=== PATIENT | female | born 1935 | race African-American/Black ===

== ENCOUNTER 2017-03-25 19:33 | Emergency (ER) | payer OTHER ==
[~2017-03-25 19:33] MED LIST: CIPROFLOXACIN250 M2 PO; ECO81 PO; ELA25 PO; LAC PO; LAC30L PO; METFORMIN ER500 M1 PO; SEN PO; SYN75 PO; ZOCOR40 MG PO; ZOF4 PO
[2017-03-25 20:33] LABS: BASOPHIL % 0.4 % (0-2); PLATELET COUNT 257 x10^3mcL (130-400); RED CELL DISTRIBUTION WIDTH 14.5 % (11.5-14.5)
[2017-03-25 20:47] LABS: ALBUMIN 3.5 g/dL (3.4-5.0); ALKALINE PHOSPHATASE 92 U/L (46-116); ALT/SGPT 17 U/L (14-59); AST/SGOT 17 U/L (15-37); BILIRUBIN TOTAL 0.2 mg/dL (0.20-1.00); CARBON DIOXIDE 29.8 mmol/L (21-32); CHLORIDE SERUM 104 mmol/L (98-107); CREATININE SERUM 1.4 mg/dL (0.6-1.0); GLUCOSE SERUM 108 mg/dL (74-106); LIPASE 92 IU/L (73-393); SODIUM SERUM 142 mmol/L (136-145); TOTAL PROTEIN, SERUM 7.5 g/dL (6.4-8.2)
[2017-03-25 20:59] LABS: CALCIUM 9.7 mg/dL (8.5-10.1)
[2017-03-25 22:00] LABS: microscopic required? NO
[2017-03-25 22:05] LABS: urine erythrocyte NEGATIVE (NEGATIVE)
[2017-03-25 22:30] VITALS: BP 164/105
== END 2017-03-25 23:07 | disposition home or self-care (01) ==
LOC: ED 19:33
PROVIDERS: Emergency Medicine
DX: R10.9 Unspecified abdominal pain (principal); I10 Essential (primary) hypertension; E03.9 Hypothyroidism, unspecified; K58.9 Irritable bowel syndrome, unspecified; Z90.710 Acquired absence of both cervix and uterus; Z98.890 Other specified postprocedural states
CPT/HCPCS: J0500; J2405; J7030